=== PATIENT | female | born 2000 | race Caucasian/White ===

== ENCOUNTER 2023-09-18 14:46 | Emergency (ER) | payer MEDICAID ==
[2023-09-18] MEDS ORDERED: Diazepam 2 MG Tab PO ONE (15:57)
[2023-09-18] MEDS ORDERED: Ketorolac 30 MG/ML SDV IM ONE (15:57)
[2023-09-18] MEDS ORDERED: Diazepam 5 MG Tab PO ONE (16:15)
[2023-09-18 16:16] LABS: BILIRUBIN,URINE NEGATIVE (NEGATIVE); GLUCOSE,URINE NORMAL (NORMAL); KETONES,URINE NEGATIVE (NEGATIVE); LEUKOCYTE ESTERASE,URINE MODERATE (NEGATIVE); NITRITE,URINE NEGATIVE (NEGATIVE); OCCULT BLOOD,URINE MODERATE (NEGATIVE); PH,URINE 6.5 (5.0-6.5); PROTEIN,URINE NEGATIVE (NEGATIVE); UROBILINOGEN,URINE NORMAL (NEGATIVE)
[2023-09-18 16:20] LABS: APPEARANCE,URINE CLEAR (CLEAR); BACTERIA,URINE FEW (NS); COLOR,URINE YELLOW (YELLOW); RBC,URINE 0-5 (0-5); SQUAMOUS EPITHELIAL CELLS,UR FEW (NS,R,O); WBC,URINE 0-5 (0-5)
== END 2023-09-18 18:00 | disposition home or self-care (01) ==
LOC: FB.ED 14:46
DX: S20.229A Contusion of unspecified back wall of thorax, initial encounter (principal); S70.01XA Contusion of right hip, initial encounter; Z87.891 Personal history of nicotine dependence; Z88.8 Allergy status to other drugs, medicaments and biological substances; W10.8XXA Fall (on) (from) other stairs and steps, initial encounter
CPT/HCPCS: 72131; 74176; 81001; 81025; 96372; 99285; J1885